=== PATIENT | male | born 1960 | race Caucasian/White ===

== ENCOUNTER 2019-02-24 03:12 | Emergency (ER) | payer OTHER ==
[2019-02-24] MEDS ORDERED: ASPIRIN 81 MG TABLET, CHEWABLE PO ONE (03:22)
[2019-02-24 04:09] LABS: ABSOLUTE EOSINOPHILS # (AUTO) 0.2 10^3/uL (0.0-0.6); ABSOLUTE LYMPHOCYTES (AUTO) 2.3 10^3/uL (0.5-4.7); ABSOLUTE MONOCYTES (AUTO) 0.4 10^3/uL (0.1-1.4); ABSOLUTE NEUT (AUTO) 3.8 10^3/uL (1.7-8.2); BASOPHILS % (AUTO) 0.5 % (0-2); EOSINOPHILS % (AUTO) 3.4 % (0-6); HEMOGLOBIN 13.4 g/dL (13.5-17.0); LYMPHOCYTES % (AUTO) 34.2 % (13-45); MEAN CORPUSCULAR HEMOGLOBIN 32.8 pg (27.0-33.4); MEAN CORPUSCULAR HGB CONC 34.4 g/dL (32.0-36.0); MEAN CORPUSCULAR VOLUME 95 fl (80-97); MONOCYTES % (AUTO) 6.1 % (3-13); PLATELET COUNT 112 10^3/uL (150-450); RED BLOOD COUNT 4.09 10^6/uL (4.35-5.55); RED CELL DISTRIBUTION WIDTH 12.9 % (11.5-14.0); SEGMENTED NEUTROPHILS % (AUTO) 55.8 % (42-78); TOTAL CELLS COUNTED % (AUTO) 100 %; WHITE BLOOD COUNT 6.7 10^3/uL (4.0-10.5)
[2019-02-24 04:33] LABS: ALBUMIN 3.9 g/dL (3.5-5.0); ALKALINE PHOSPHATASE 58 U/L (38-126); ANION GAP 7 (5-19); ASPARTATE AMINO TRANSFERASE 16 U/L (17-59); BILIRUBIN,DIRECT 0.2 mg/dL (0.0-0.4); BILIRUBIN,TOTAL 0.5 mg/dL (0.2-1.3); BLOOD UREA NITROGEN 15 mg/dL (7-20); CALCIUM 9.5 mg/dL (8.4-10.2); CARBON DIOXIDE 28 mmol/L (22-30); CHLORIDE 105 mmol/L (98-107); CREATINE KINASE 36 U/L (55-170); GLUCOSE 85 mg/dL (75-110); POTASSIUM 4.5 mmol/L (3.6-5.0); TOTAL PROTEIN 6.4 g/dL (6.3-8.2)
--- NOTE | 2019-02-24 04:34 | ER Document Report ---
ED General - General Chief Complaint: Chest Pain Stated Complaint: CHEST PAIN, SHORTNESS OF BREATH Time Seen by Provider: 02/24/19 04:13 Mode of Arrival: Medic Information source: Patient TRAVEL OUTSIDE OF THE [place] IN LAST 30 DAYS: No - HPI Notes: Patient is a 58-year-old white male ex-smoker presents to the emergency department with report that he was awakened with left-sided chest pain that radiated to his left jaw and out the arm associated with shortness of breath, nausea at about 2 AM this morning. The patient had no vomiting. The patient was noted to have a relative bradycardia with heart rate from the high 40s to 60s and was given nitro x1 in route to the emergency department which dropped his blood pressure but it quickly recovered. The patient denies any response to his chest pain with the nitroglycerin that was given. The patient states his chest pain is sharp and pleuritic with a mild radiation through to the back. Patient denies any fever or chills or cough or belching or any specific injury to the chest or arm. The patient denies abdominal pain, constipation, diarrhea, dysuria. No skin rash. No leg pain or swelling. The patient did take ibuprofen earlier this evening at 1900 for chronic right shoulder pain. Patient reports previous hospitalization related to his heart for 4 days in [facility], but states he does not think a stress test was performed. Patient has never had a catheterization performed. Family history mother had bypass surgery at age 60 and 1 brother with an PR at age 52. Past Medical History - General Information source: Patient - Social History Smoking Status: Former Smoker Frequency of alcohol use: None Drug Abuse: Cocaine Lives with: Other Family History: CAD Patient has suicidal ideation: No Patient has homicidal ideation: No Renal/ Medical History: Denies: Hx Peritoneal Dialysis Past Surgical History: Reports: Hx Appendectomy Review of Systems - Review of Systems -: Yes All other systems reviewed and negative Physical Exam - Vital signs Vitals: Temp Pulse Resp BP 98.4 F 50 L 14 118/72 02/24/19 03:13 02/24/19 03:13 02/24/19 03:13 02/24/19 03:13 - Notes Notes: PHYSICAL EXAMINATION: GENERAL: Well-appearing, well-nourished and in no acute distress. HEAD: Atraumatic, normocephalic. EYES: Pupils equal round and reactive to light, extraocular movements intact, sclera anicteric, conjunctiva are normal. ENT: Nares patent, oropharynx clear without exudates. Moist mucous membranes. NECK: Normal range of motion, supple without lymphadenopathy LUNGS: Breath sounds clear to auscultation bilaterally and equal. No wheezes rales or rhonchi. HEART: Regular rate and rhythm without murmurs. Patient has reproducible anterior chest wall pain on the left on palpation. There is pain reproduction with movement of the left shoulder also. There is no bony deformity or crepitance noted. ABDOMEN: Soft, nontender, nondistended abdomen. No guarding, no rebound. No masses appreciated. Musculoskeletal: Normal range of motion, no pitting or edema. No cyanosis. Negative Homans. No palpable cord. NEUROLOGICAL: Cranial nerves grossly intact. Normal speech, normal gait. Normal sensory, motor exams PSYCH: Normal mood, normal affect. SKIN: Warm, Dry, normal turgor, no rashes or lesions noted. Course - Re-evaluation Re-evalutation: 02/24/19 06:27 Patient given Toradol for pain. Repeat troponin is ordered. Initial troponin is negative. Care turned over to Dr. Negro at 0600. - Vital Signs Vital signs: Temp Pulse Resp BP Pulse Ox 98.4 F 50 L 14 122/86 H 99 02/24/19 03:13 02/24/19 03:13 02/24/19 04:01 02/24/19 04:00 02/24/19 04:01 - Laboratory Result Diagrams: 02/24/19 03:15 02/24/19 03:15 Laboratory results interpreted by me: 02/24/19 02/24/19 03:15 03:15 RBC 4.09 L Hgb 13.4 L Plt Count 112 L AST 16 L Creatine Kinase 36 L - EKG Interpretation by Nj EKG shows normal: Sinus rhythm Additional EKG results interpreted by me: 02/24/19 04:35 EKG is interpreted by wi at 0 321 showed sinus rhythm with bradycardia heart rate of 56 with mild sinus arrhythmia. No gross evidence for acute PR or ischemia noted. There was no old EKG available for comparison. Discharge - Discharge Clinical Impression: Chest pain Qualifiers: Chest pain type: unspecified Qualified Code(s): R07.9 - Chest pain, unspecified Disposition: OTHER
[2019-02-24] MEDS ORDERED: KETOROLAC TROMETHAMINE INJ/PF 30 MG/1 ML SDV IV ONE (04:36)
--- NOTE | 2019-02-24 04:38 | RADIOLOGY REPORT (SQ) ---
Chest 2 view on 02/24/2019 at 4:03 AM CLINICAL INDICATION: Chest pain COMPARISON: None FINDINGS: The lungs are clear. Cardiac, hilar and mediastinal contours are within normal limits. Pulmonary vascularity is within normal limits. No acute bony abnormality is noted. IMPRESSION: No active disease.
[2019-02-24 04:45] LABS: CREATINE KINASE MB 0.23 ng/mL (<4.55)
[2019-02-24 04:46] LABS: TROPONIN I < 0.012 ng/mL
--- NOTE | 2019-02-24 06:19 | RADIOLOGY REPORT (SQ) ---
EXAM DESCRIPTION: CT CHEST ANGIOGRAPHY WITHOUT THEN WITH IV CONTRAST COMPLETED DATE/TME: 02/24/2019 04:33 CLINICAL HISTORY: 58 years, Male, pleuritic chest pain COMPARISON: None TECHNIQUE: Axial CT images of the chest were obtained after the administration of IV contrast. MPR and MIP reconstructions were performed. DLP 664 Images stored on PACS. All CT scanners at this facility use dose modulation, iterative reconstruction, and/or weight based dosing when appropriate to reduce radiation dose to as low as reasonably achievable (ALARA). [facility]: Dose Right [facility]: CareDose [facility]: Dose Right [facility]: Teradose 4D [facility]: Smart G[employer] Origins LIMITATIONS: None. FINDINGS: No pulmonary embolism is detected to the segmental branches. The thyroid gland is normal. The central airways are patent. There are atherosclerotic calcifications of the LAD. No pericardial effusion. No evidence of an aortic dissection. No mediastinal or hilar lymphadenopathy. The lungs are clear. There is no pneumothorax or pleural effusion. The visualized portions of the upper abdomen appear unremarkable. There is no acute fracture or subluxation. IMPRESSION: No CT evidence of acute pulmonary embolism. Clear lungs. TECHNICAL DOCUMENTATION: Quality ID # [id number]: Final reports with documentation of one or more dose reduction techniques (e.g., Automated exposure control, adjustment of the mA and/or kV according to patient size, use of iterative reconstruction technique) copyright 2010 [email or web address]- All Rights Reserved
--- NOTE | 2019-02-24 09:03 | ER Document Report ---
Doctor's Note Notes: 02/24/19 09:01 The patient was signed out to me at shift change by Dr. Mariscal. The patient was pending a repeat troponin. Went back and reassessed him [id number] the patient is a 58-year-old male who presented with chest discomfort. Is feeling better at the time of my exam. I reviewed his labs and EKG EKG is nonischemic he is a little borderline bradycardic but no high-grade AV blocks serial enzymes have been negative. Troponins are negative. D-dimer negative. Low suspicion for PE. At this time I feel the patient does not have acute coronary syndrome he needs to follow-up once he gets out of residential. If he has repeat symptoms he should return to the ER.
[2019-02-24 09:58] VITALS: BP 114/83
--- NOTE | 2019-02-25 14:42 | EKG REPORT ---
SEVERITY:- ABNORMAL ECG - SINUS RHYTHM, WITH SINUS ARRHYTHMIA NONSPECIFIC INTRAVENTRICULAR CONDUCTION DELAY : Confirmed by: Jose Francisco Sam 25-Feb-2019 14:41:33
== END 2019-02-24 09:58 | disposition home or self-care (01) ==
LOC: ER 03:12
DX: R07.89 Other chest pain (principal); R07.81 Pleurodynia; R06.02 Shortness of breath; R11.0 Nausea; R00.1 Bradycardia, unspecified; M25.511 Pain in right shoulder; G89.29 Other chronic pain; Z87.891 Personal history of nicotine dependence; Z82.49 Family history of ischemic heart disease and other diseases of the circulatory system
CPT/HCPCS: 93005; 99285; 96374; 36415; 82553; 82550; 83735; 85025; 80053; 84484; 85379; 71046; 71275; 93010; J1885